=== PATIENT | male | born 1955 | race Caucasian/White ===

== ENCOUNTER 2016-11-08 14:46 | Emergency (ER) | payer OTHER ==
[~2016-11-08] VITALS: Ht 170.2 cm; Wt 83.9 kg
[~2016-11-08 14:46] MED LIST: DIOVAN HCT 12.51 TA2 PO; FLEXERIL10 MG PO; PERCOCET 325 MG1 TA2 PO
--- NOTE | 2016-11-08 16:26 | ED GI/GU/ABDOMINAL COMPLAINT ---
History of Present Illness General Chief Complaint: Abdominal Pain/Flank Pain Stated Complaint: ABD PAIN Source: patient, family, old records Exam Limitations: no limitations Vital Signs & Intake/Output Vital Signs & Intake/Output Vital Signs Date Time Temp Pulse Resp B/P B/P Pulse O2 O2 Flow FiO2 Mean Ox Delivery Rate 11/084 98.7 62 18 126/72 98 Room Air 11/08 1804 97.5 84 20 126/80 97 Room Air 11/08 1506 97.1 90 18 132/83 96 Room Air Allergies Coded Allergies: NO KNOWN ALLERGIES (01/15/14) Reconcile Medications Mesalamine (Lialda) (Unknown Strength) TABLET.DR (Unknown Dose) PO DAILY UNKNOWN (Reported) Ondansetron (Zofran Odt) 4 MG TAB.RAPDIS 1 TAB SL TID PRN nausea Oxycodone HCl/Acetaminophen (Percocet 5-325 MG Tablet) 5 MG-325 MG TABLET 1-2 TAB PO Q6H PRN PAIN Tamsulosin HCl (Flomax) 0.4 MG CAP.ER.24H 1 CAP PO DAILY PRN kidney stone Valsartan/Hydrochlorothiazide (Valsartan-Hctz 80-12.5 MG Tab) 80 MG-12.5 MG TABLET 1 TAB PO DAILY BP (Reported) Triage Note: 61 YEAR OLD MALE WITH HISTORY OF KIDNEY STONES STATES THAT HE HAD A STOMACH BUG FOR A COUPLE OF DAYS AND THEN WAS BETTER, YESTERDAY HAD SOME LLQ/FLANK PAIN THAT WENT AWAY. STATES THAT HE WENT HOME FROM WORK EARLIER DUE TO NOT FEELING WELL AND THAT HE WOKE 1400 WITH 10/10 SHARP LLQ/FLANK PAIN AND NAUSEA. PT DRY HEAVING AT TRIAGE. DENIES SEEING BLOOD IN HIS URINE Triage Nurses Notes Reviewed? yes HPI: Patient is a 61 year old male presents complaining of sharp left lower quadrant pain. Symptoms onset yesterday. Pain intermittent, worse today. Pain is a sharp pain currently severe, patient has not taken any medication for her symptoms prior to arrival. Sitting makes the pain worse. Patient has been having diarrhea for the past 2-3 days. Patient's also having some episodes of diarrhea at home. Associated nausea. Patient denies fevers, vomiting, hematuria, dysuria. (NITIN SEWELL,TRINI) Past History Travel History Traveled to [place] past 21 day No Medical History Any Pertinent Medical History? 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 No (TRINI LOO) Review of Systems Review of Systems Constitutional: Denies: chills, fever. EENTM: Reports: no symptoms. Respiratory: Denies: cough, short of breath. Cardiovascular: Denies: chest pain. GI: Reports: see HPI. Genitourinary: Denies: dysuria, frequency, hematuria. Musculoskeletal: Denies: back pain. Skin: Reports: no symptoms. Neurological/Psychological: Reports: no symptoms. Hematologic/Endocrine: Reports: no symptoms. Immunologic/Allergic: Reports: no symptoms. (TRINI LOO) Physical Exam Physical Exam General Appearance: alert, awake Head: atraumatic, normal appearance Eyes: Bilateral: normal appearance, PERRL, EOMI. Ears, Nose, Throat, Mouth: hearing grossly normal, moist mucous membrane Neck: normal inspection, supple, full range of motion Respiratory: normal breath sounds, chest non-tender, no respiratory distress, lungs clear Cardiovascular: regular rate/rhythm Gastrointestinal: normal bowel sounds, soft, left lower quadrant tenderness. No palpable masses or hernias. Back: normal inspection, normal range of motion, no vertebral tenderness, no cva tenderness Extremities: normal range of motion Neurologic/Psych: no motor/sensory deficits, awake, alert, oriented x 3, normal gait, normal mood/affect Skin: intact, normal color, warm/dry Core Measures ACS in differential dx? No Severe Sepsis Present: No Septic Shock Present: No (TRINI LOO) Progress Differential Diagnosis: bowel obstruction, diverticulitis, gastritis, hepatitis, hernia, ischemic bowel, inflamm bowel dis, perforated viscous, pyelonephritis, SBO, testicular torsion, ureterolithiasis, urinary retention, urethritis, UTI/ pyelo Plan of Care: Orders Procedure Date/time Status COMPREHENSIVE METABOLIC PANEL 11/08 1626 Complete CBC WITHOUT DIFFERENTIAL 11/08 162 Complete URINALYSIS 11/08 1530 Complete Laboratory Tests 11/08/16 1841: Urinalysis LIGHT H, Urine Color YEL, Urine Clarity CLEAR, Urine pH 6.0, Ur Specific Crosby 1.020, Urine Protein 30 H, Urine Ketones TRACE H, Urine Nitrite NEG, Urine Bilirubin NEG, Urine Urobilinogen 0.2, Ur Leukocyte Esterase NEG, Ur Microscopic SEDIMENT EXAMINED, Urine RBC 1-3, Urine WBC RARE, Ur Epithelial Cells RARE, Urine Bacteria RARE H, Hyaline Casts 1-3 H, Urine Mucus MOD H, Urine Hemoglobin TRACE-INTACT H, Urine Glucose NEG 11/08/16 1630: Anion Gap 15, Estimated GFR > 60, BUN/Creatinine Ratio 16.4, Glucose 163 H, Calcium 9.1, Total Bilirubin 0.6, AST 17, ALT 40, Alkaline Phosphatase 96, Total Protein 7.3, Albumin 4.1, Globulin 3.2, Albumin/Globulin Ratio 1.3, CBC w Diff NO MAN DIFF REQ, RBC 4.50 L, MCV 91.2, MCH 30.6, RDW 13.3, MPV 7.1 L, Gran % 80.2 H, Lymphocytes % 7.8 L, Monocytes % 10.4 H, Eosinophils % 1.4, Basophils % 0.2, Absolute Granulocytes 6.6 H, Absolute Lymphocytes 0.6 L, Absolute Monocytes 0.9 H, Absolute Eosinophils 0.1, Absolute Basophils 0, PUBS MCHC 33.5 1750: Patient's pain significantly improved. Discussed results of CT scan with patient. Awaiting urinalysis. 1915: Patient appears well-controlled. Results discussed with patient and his . Appears stable for discharge and outpatient follow-up. Patient provided with a urine strainer and instructed to follow-up with his urologist. Patient instructed to return if worsening. (NITIN SEWELL,TRINI) Diagnostic Imaging: Viewed by Me: CT Scan. Discussed w/RAD: CT Scan. Radiology Impression: PATIENT: GABBIE GARCIA PRESENT AGE: 61 PATIENT ACCOUNT NO: [id number] : 59 LOCATION: [facility] ORDERING PHYSICIAN: TRINI SEWELL SERVICE DATE: 11/08/16-1631 EXAM TYPE: CAT - CT ABD & PELVIS W/O IV CONTRAS EXAMINATION: CT ABDOMEN AND PELVIS WITHOUT CONTRAST CLINICAL INFORMATION: Left lower abdominal pain. Renal colic. History of renal stones. COMPARISON: Multiple priors, most recent CT abdomen/pelvis dated 02/07/2016. TECHNIQUE: Multidetector volumetric imaging was performed from the superior aspect of the liver through the pubic symphysis. Sagittal and coronal reformatted images were obtained on the technologist's workstation. DLP: 302.39 mGy-cm FINDINGS: LUNG BASES: The visualized lung bases are unremarkable. LIVER, GALLBLADDER, AND BILIARY TREE: The liver is normal in size, shape, and attenuation. Nonspecific hypodensities are redemonstrated within the left lobe of the liver, likely representing cysts. No biliary ductal dilatation is present. The gallbladder is unremarkable with no evidence of radiopaque gallstones, gallbladder wall thickening, or obvious pericholecystic inflammatory changes. PANCREAS: Unremarkable SPLEEN: Unremarkable ADRENAL GLANDS: Unremarkable KIDNEYS AND URETERS: The kidneys are normal in size, shape, and attenuation. A 5.5 cm probable cyst is redemonstrated within the inferior pole of the left kidney. A nonobstructing stone is again seen within the midpole of the left kidney. There is a 5 mm obstructing stone at the left ureterovesicular junction with mild proximal hydroureteronephrosis. There is minimal left-sided perinephric fat stranding. Two 3-4 mm nonobstructing stones are redemonstrated within the midpole the right kidney. Multiple additional suspected phleboliths are seen within the pelvis. BLADDER: Otherwise unremarkable. GASTROINTESTINAL TRACT: There is no large or small bowel obstruction. There are scattered colonic diverticula without adjacent inflammatory change. The appendix is normal. There is no intra-abdominal free air or free fluid. ABDOMINAL WALL: There are bilateral fat-containing inguinal hernias, not significantly changed. LYMPH NODES: There is no intra-abdominal lymphadenopathy although evaluation is limited without IV contrast. VASCULAR: The abdominal aorta is nondilated. The IVC is unremarkable. PELVIC VISCERA: The prostate and seminal vesicles are unremarkable. OSSEOUS STRUCTURES: There is degenerative disc disease at L5-S1, not significantly changed. No lytic or blastic osseous lesion is identified. IMPRESSION: 1. Obstructing 5 mm stone at the left ureterovesicular junction with mild proximal hydroureteronephrosis. Minimal left-sided perinephric stranding. 2. Additional bilateral nonobstructing renal stones. No right-sided hydronephrosis. Unchanged left renal cyst. 3. Bilateral fat-containing inguinal hernias, not significantly changed. DICTATED BY: ML SCHWARZ MD DATE/TIME DICTATED:11/08/161709 SENIOR TAX ANALYST:KVNG DATE/TIME TRANSCRIBED:1709 CONFIDENTIAL, DO NOT COPY WITHOUT APPROPRIATE AUTHORIZATION. < Electronically signed in Other Vendor System> SIGNED BY: ML SCHWARZ MD 11/08/16 1735 Initial ED EKG: none (TRINI LOO) Departure Departure Time of Disposition: 1918 Disposition: HOME OR SELF CARE Condition: Stable Clinical Impression Primary Impression: Renal colic on left side Referrals: JANEL GRACE,J[place]ICA Pro (PCP/Family) XIOMARA GRACE,VEE Mcguire Additional Instructions: Drink plenty of fluids. Contact your urologist tomorrow morning for appointment for further evaluation and management. Urinate through the strainer. If you pass the stone, then bring it to the urologist for analysis. Return to the emergency department if fevers, unable to stay hydrated, pain uncontrollable, or worsening of symptoms. Departure Forms: Customer Survey General Discharge Information Prescriptions: Current Visit Scripts Oxycodone HCl/Acetaminophen (Percocet 5-325 MG Tablet) 1-2 TAB PO Q6H PRN PAIN #15 TAB Tamsulosin HCl (Flomax) 1 CAP PO DAILY PRN kidney stone #10 CAP Ondansetron (Zofran Odt) 1 TAB SL TID PRN nausea #15 TAB (TRINI LOO) PA/SALES CORRESPONDENT Co-Sign Statement Statement: ED Attending supervision documentation- [] I saw and evaluated the patient. I have also reviewed all the pertinent lab results and diagnostic results. I agree with the findings and the plan of care as documented in the PA's/SALES CORRESPONDENT's documentation. [X] I have reviewed the ED Record and agree with the PA's/SALES CORRESPONDENT's documentation. [] Additions or exceptions (if any) to the PAs/SALES CORRESPONDENT's note and plan are summarized below: [] (AMANDA GRACE,CRISTI)
[2016-11-08 16:42] LABS: ABSOLUTE BASOPHIL COUNT 0 /CUMM (0.0-0.2); ABSOLUTE EOSINOPHIL COUNT 0.1 /CUMM (0.0-0.7); ABSOLUTE GRANULOCYTE CT 6.6 /CUMM (1.4-6.5); ABSOLUTE LYMPH COUNT 0.6 /CUMM (1.2-3.4); ABSOLUTE MONOCYTE COUNT 0.9 /CUMM (0.10-0.60); BASOPHIL % 0.2 % (0.0-2.0); EOSINOPHIL % 1.4 % (0-5); GRANULOCYTE % 80.2 % (42.2-75.2); HEMATOCRIT 41.1 % (42-52); MEAN CORPUSCULAR HGB 30.6 PG (27.0-31.0); MEAN CORPUSCULAR HGB CONC 33.5 G/DL (33.0-37.0); MEAN CORPUSCULAR VOLUME 91.2 FL (80.0-94.0); MEAN PLATELET VOLUME 7.1 FL (7.4-10.4); PLATELET COUNT 283 /CUMM (130-400); RBC DISTRIBUTION WIDTH 13.3 % (11.5-14.5); WHITE BLOOD CELL COUNT 8.3 /CUMM (4.8-10.8)
[2016-11-08] MEDS ORDERED: VALSARTAN-HCTZ1 EACH PO (17:08)
[2016-11-08] MEDS ORDERED: LIALDA1.2 G1 PO (17:08)
--- NOTE | 2016-11-08 17:35 | CT SCAN REPORT ---
EXAMINATION: CT ABDOMEN AND PELVIS WITHOUT CONTRAST CLINICAL INFORMATION: Left lower abdominal pain. Renal colic. History of renal stones. COMPARISON: Multiple priors, most recent CT abdomen/pelvis dated 02/07/2016. TECHNIQUE: Multidetector volumetric imaging was performed from the superior aspect of the liver through the pubic symphysis. Sagittal and coronal reformatted images were obtained on the technologist's workstation. DLP: 302.39 mGy-cm FINDINGS: LUNG BASES: The visualized lung bases are unremarkable. LIVER, GALLBLADDER, AND BILIARY TREE: The liver is normal in size, shape, and attenuation. Nonspecific hypodensities are redemonstrated within the left lobe of the liver, likely representing cysts. No biliary ductal dilatation is present. The gallbladder is unremarkable with no evidence of radiopaque gallstones, gallbladder wall thickening, or obvious pericholecystic inflammatory changes. PANCREAS: Unremarkable SPLEEN: Unremarkable ADRENAL GLANDS: Unremarkable KIDNEYS AND URETERS: The kidneys are normal in size, shape, and attenuation. A 5.5 cm probable cyst is redemonstrated within the inferior pole of the left kidney. A nonobstructing stone is again seen within the midpole of the left kidney. There is a 5 mm obstructing stone at the left ureterovesicular junction with mild proximal hydroureteronephrosis. There is minimal left-sided perinephric fat stranding. Two 3-4 mm nonobstructing stones are redemonstrated within the midpole the right kidney. Multiple additional suspected phleboliths are seen within the pelvis. BLADDER: Otherwise unremarkable. GASTROINTESTINAL TRACT: There is no large or small bowel obstruction. There are scattered colonic diverticula without adjacent inflammatory change. The appendix is normal. There is no intra-abdominal free air or free fluid. ABDOMINAL WALL: There are bilateral fat-containing inguinal hernias, not significantly changed. LYMPH NODES: There is no intra-abdominal lymphadenopathy although evaluation is limited without IV contrast. VASCULAR: The abdominal aorta is nondilated. The IVC is unremarkable. PELVIC VISCERA: The prostate and seminal vesicles are unremarkable. OSSEOUS STRUCTURES: There is degenerative disc disease at L5-S1, not significantly changed. No lytic or blastic osseous lesion is identified. IMPRESSION: 1. Obstructing 5 mm stone at the left ureterovesicular junction with mild proximal hydroureteronephrosis. Minimal left-sided perinephric stranding. 2. Additional bilateral nonobstructing renal stones. No right-sided hydronephrosis. Unchanged left renal cyst. 3. Bilateral fat-containing inguinal hernias, not significantly changed.
[2016-11-08] MEDS ORDERED: ZOFRAN ODT4 M1 SL (19:21)
[2016-11-08] MEDS ORDERED: PERCOCET 5-3251 EACH PO (19:21)
[2016-11-08] MEDS ORDERED: FLOMAX0.4 M1 PO (19:21)
[2016-11-08 19:24] VITALS: BP 126/72
== END 2016-11-08 19:28 ==
LOC: ERH 14:46
PROVIDERS: Physician Assistant
DX: N23 Unspecified renal colic (principal)
CPT/HCPCS: 74176; 81001; 96374; 96375; 96376; J1885; J2405

== ENCOUNTER → 2016-11-12 | Day surgery (SDC) | payer OTHER ==
[~2016-11-12] VITALS: Ht 167.6 cm; Wt 83.5 kg
[~2016-11-12] MED LIST changes: +FLOMAX0.4 M1 PO; +LIALDA1.2 G1 PO; +PERCOCET 5-3251 EACH PO; +VALSARTAN-HCTZ1 EACH PO; +ZOFRAN ODT4 M1 SL
--- NOTE | 2016-11-12 15:32 | Operative Report ---
Operative/Inv Procedure Report Surgery Date: 11/12/16 Name of Procedure: left ureteroscopy with laserlithotripsy and stone removal with stent placement Right ureteroscopy with laser lithotripsy and stone removal with stent placement and retrograde pyelogram. Pre-Operative Diagnosis: Left ureteral stone and right renal stones Post-Operative Diagnosis: Same Estimated Blood Loss: less than 50ml Surgeon/President And Chief Operating Officer: NELLY FRANCOIS MD Anesthesia: laryngeal mask airway Drains: 6 x 24 cm stents right and left Specimens: Stone fragments Complications: None Condition: Stable Operative Indication: Bilateral stones, left ureteral and right kidney Operative/Procedure Note Note: This an operative dictation on patient Rickie Martinez. Patient was identified in the holding area and consented for a left ureteroscopy with stone lithotripsy and stent placement followed by a possible right ureteroscopy with laser lithotripsy stone extraction and stent placement. The risks benefits alternatives of the surgery were given. It was explained that doing surgery on both kidneys would be the risky and So bilateral stones were be taken care of only if minimal work is done on the left side. Patient understood this all questions were answered. Patient was taken to the operating room placed on the operating table in the supine position. He was the given IV antibiotics after timeout was performed. LMA anesthesia was given. Patient was placed in the dorsolithotomy position and prepped and draped in the standard sterile fashion. Cystoscopy was performed and the bladder was globally inspected and no abnormalities were appreciated. There were no lesions masses or trabeculation. The ureteral orifices were in their normal anatomic position. The left ureter was cannulated with a solo guidewire. The semirigid ureteroscope was then used to enter the ureter. The stone was quickly identified and was black and smooth in color and character. This was lasered with the 400 laser fiber. Once it was broken into fragments the 0 tip basket was then used to remove the fragments and sent off to stone analysis. Proximally 45 fragments were removed. The wire that was in place was then used to place a 6 x 26 cm ureteral stent with cystoscopy. This was done without difficulty was seen to be in good position. Attention was then turned to the patient's right side. A guidewire was placed up into the renal pelvis using fluoroscopic guidance and cystoscopy. A second wire was placed using a dual-lumen catheter. One wire was clamped and the other was used to place a ureteral access sheath 35 cm in length. This went up the easily and seen to be in good position fluoroscopically. The flexible ureteroscope was then placed into the ureteral access sheath and up into the renal pelvis. However there appeared to be small ureteral injury with the ureteral access sheath which is difficult to understand given that it was placed with the wire. It was brought back to the mid ureter where of good ureteral caliber could be seen. The wire that was in place within the correct position. The flexible ureteroscope was brought up into the renal pelvis following this guidewire. The calyces were examined from the upper pole down to the lower pole. The stent 2 stones were seen in the lower pole. They were also was black and smooth in character. These were lasered with the 400 laser fiber as well. They were broken up into pieces. The fragments were then removed with the 0 tip Basket. The smaller fragments were unable to be removed from her left to be passed on their own. Retropyelogram was performed prior to the start of the examination of the calyces to ensure that all the anatomy was evaluated appropriately. A second retropyelogram was performed after the stone surgery to see if there was any extravasation. There was a mild amount posteriorly. The remaining wire was then used to place a 6 x 26 cm ureteral stent using a cystoscopy. Seen to be in good position both ureteral cystoscopically as well as fluoroscopically. The wire was removed and this stent was seen to be in good position. The patient was bleeding from the site of the laser lithotripsy in the lower pole. The bladder was emptied and the patient tolerated the procedure well. Findings: left ureteral stone right renal stones x 2 Discharge Disposition: PACU
--- NOTE | 2016-11-12 17:30 | RADIOLOGY REPORT ---
EXAMINATION: XR KIDNEYS, URETER, BLADDER CLINICAL INDICATION: Bilateral ureteroscopy with retrograde stent placement. COMPARISON: CT abdomen and pelvis 11/08/2016. Dose: 0.189 mGym\S\2 Fluoroscopy time 0.3 minutes. TECHNIQUE: A total of 14 fluoroscopic spot images were obtained from the OR during retrograde ureteroscopy and stent placement. FINDINGS: Images demonstrate placement of bilateral retrograde ureteral stents with the proximal pigtail coiled within the bilateral renal pelvises and the distal end coiled within the urinary bladder. IMPRESSION: Fluoroscopic spot images from the OR demonstrate satisfactory positioning of the bilateral ureteral stents. Please refer to full operative report for full procedure details.
== END ==
LOC: STS 01:52
DX: N20.1 Calculus of ureter (principal); N20.0 Calculus of kidney; I10 Essential (primary) hypertension
CPT/HCPCS: 74000; 82355; C2617; J0131; J0690; J2250